=== PATIENT | male | born 1990 | race Caucasian/White ===

== ENCOUNTER 2020-08-01 21:43 | Emergency (ER) | payer OTHER ==
[~2020-08-01] VITALS: Ht 185.4 cm; Wt 197.3 kg
[~2020-08-01 21:43] MED LIST: ALBUTEROL0.09 MG/A2 INH; CLARITIN10 MG PO; TOBREX 5 ML5 M1 OPH; ZITHROMAX Z PA250 MG PO
[2020-08-01] MEDS ORDERED: PREDNISONE20 M1 PO (23:01)
[2020-08-01] MEDS ORDERED: PROVENTIL HFA6.7 GM INH (23:01)
== END 2020-08-01 23:05 | disposition home or self-care (01) ==
LOC: ED 21:43
DX: U07.1 COVID-19 (principal); Z79.899 Other long term (current) drug therapy

== ENCOUNTER → 2023-12-14 | Outpatient (CLI) | payer BC ==
[~2023-12-14] MED LIST changes: +PREDNISONE20 M1 PO; +PROVENTIL HFA6.7 GM INH
[2023-12-14 16:14] LABS: BILIRUBIN Negative (Negative); BLOOD Negative (Negative); CLARITY Clear (Clear); COLOR Yellow (Yellow); GLUCOSE Negative (Negative); KETONE Negative (Negative); LEUKO ESTERASE Trace (Negative); NITRITE Negative (Negative); PH 7.5 (4.5-8.0); SPECIFIC GRAVITY 1.025 (1.001-1.030)
[2023-12-14 16:15] LABS: HEMATOCRIT 45.1 % (42.0-52.0); MEAN CELL VOLUME 90.2 fl (80.0-94.0); MEAN CORPUSCULAR HGB 27.8 pg (27.0-31.0); MEAN CORPUSCULAR HGB CONC 30.8 g/dl (33.0-37.0); PLATELET COUNT AUTOMATED 292 10*3/uL (130-400); RED CELL DISTRI WIDTH 14.2 % (0-14.5); RETICULOCYTE % 1.87 % (0.50-2.50); WHITE BLOOD COUNT 17.8 10*3/uL (4.8-10.8)
[2023-12-14 16:17] LABS: MANUAL DIFF REFLEX YES
[2023-12-14 16:21] LABS: BACTERIA 1+; MUCOUS 1+
[2023-12-14 16:40] LABS: PLATELET SUFFICIENCY NORMAL (NORMAL); TOTAL CELLS COUNTED 100 #CELLS
[2023-12-14 16:41] LABS: POLYCHROMASIA SLIGHT
[2023-12-14 16:47] LABS: ALKALINE PHOSPHATASE 99 U/L (46-116); BUN 11 mg/dl (9-23); CHLORIDE 103 mmol/L (98-107); CHOLESTEROL 202 mg/dL (<200); GAMMA GLUTAMYL TRANSPEPTIDASE 35 U/L (0-73); LDL CHOLESTEROL 134 mg/dL (9-159); SGPT/ALT 17 U/L (5-49); T3 UPTAKE 23.5 % (22.4-36.7); THYROXINE (T4) TOTAL 8.3 ug/dl (4.5-10.9); TOTAL PROTEIN 8.3 gm/dL (6.0-8.0); TRIGLYCERIDES 152 mg/dl (<150); URIC ACID 6.6 mg/dL (3.7-9.2)
[2023-12-14 17:05] LABS: VITAMIN D, 25-HYDROXY 6.9 ng/mL (30-100)
[2023-12-15 12:07] LABS: ANTI-DSDNA ANTIBODIES 1 IU/mL (0-9)
== END | disposition home or self-care (01) ==
LOC: LAB 15:33
PROVIDERS: ATTEND Family Medicine
DX: R06.02 Shortness of breath (principal); R79.89 Other specified abnormal findings of blood chemistry; R53.83 Other fatigue; E78.5 Hyperlipidemia, unspecified; E55.9 Vitamin D deficiency, unspecified

== ENCOUNTER → 2024-02-03 | Outpatient (CLI) | payer BC ==
[2024-02-03 13:58] LABS: BASO # 0.1 10*3/uL (0.0-0.1); BASO % 0.3 % (0.0-1.0); EOS # 0.1 10*3/uL (0.0-0.4); EOS % 0.8 % (1.0-4.0); HEMATOCRIT 43.3 % (42.0-52.0); LYMPH # 2.8 10*3/uL (1.3-4.4); MEAN CELL VOLUME 91.2 fl (80.0-94.0); MEAN CORPUSCULAR HGB 28.8 pg (27.0-31.0); MEAN CORPUSCULAR HGB CONC 31.6 g/dl (33.0-37.0); MEAN PLATELET VOLUME 10.1 fl (9.6-12.3); MONO # 1.1 10*3/uL (0.1-1.0); MONO % 6.7 % (3.0-9.0); NEUT # 12.1 10*3/uL (2.3-7.9); NEUT % 74.3 % (47.0-73.0); PLATELET COUNT AUTOMATED 288 10*3/uL (130-400); RED BLOOD COUNT 4.75 10*6/uL (4.50-5.90); RED CELL DISTRI WIDTH 14.1 % (0-14.5); WHITE BLOOD COUNT 16.3 10*3/uL (4.8-10.8)
[2024-02-05 19:06] LABS: % CD19 24 % (6-23); % CD3 71 % (62-87); % CD4 49 % (32-64); % CD45RA 23 % (28-71); % CD45RO 77 % (28-72); % CD8 20 % (15-46); ABSOLUTE CD19 711 cells/uL (91-610); ABSOLUTE CD3 2093 cells/uL (570-2400); ABSOLUTE CD4 1445 cells/uL (430-1800); ABSOLUTE CD45RA 335 cells/uL (150-870); ABSOLUTE CD45RO 1125 cells/uL (190-1050); ABSOLUTE CD8 580 cells/uL (210-1200); ABSOLUTE NATURAL KILLER CELLS 139 cells/uL (78-470); CD4:CD8 RATIO 2.45 ratio (0.80-3.90); NATURAL KILLER CELLS % 5 % (4-26)
== END | disposition home or self-care (01) ==
LOC: LAB 13:19
PROVIDERS: Internal Medicine Hematology & Oncology
DX: D72.829 Elevated white blood cell count, unspecified (principal)

== ENCOUNTER → 2024-03-29 | Outpatient (CLI) | payer BC ==
[2024-03-29 14:29] LABS: HEMATOCRIT 42.1 % (42.0-52.0); MEAN CELL VOLUME 92.9 fl (80.0-94.0); MEAN CORPUSCULAR HGB 28.7 pg (27.0-31.0); MEAN CORPUSCULAR HGB CONC 30.9 g/dl (33.0-37.0); MEAN PLATELET VOLUME 10.2 fl (9.6-12.3); PLATELET COUNT AUTOMATED 289 10*3/uL (130-400); RED BLOOD COUNT 4.53 10*6/uL (4.50-5.90); RED CELL DISTRI WIDTH 13.5 % (0-14.5); WHITE BLOOD COUNT 16.6 10*3/uL (4.8-10.8)
[2024-03-29 14:33] LABS: MANUAL DIFF REFLEX YES
[2024-03-29 15:03] LABS: PLATELET SUFFICIENCY NORMAL (NORMAL); TOTAL CELLS COUNTED 100 #CELLS
[2024-03-29 15:04] LABS: POLYCHROMASIA SLIGHT
== END | disposition home or self-care (01) ==
LOC: LAB 13:55
PROVIDERS: ATTEND Physician Assistant Medical
DX: D72.829 Elevated white blood cell count, unspecified (principal); D50.9 Iron deficiency anemia, unspecified